=== PATIENT | female | born 1990 | race Two or more races ===

== ENCOUNTER 2025-01-09 17:17 | Emergency (ER) | payer OTHER ==
[~2025-01-09] VITALS: Ht 165.1 cm; Wt 74.8 kg
[2025-01-09] MEDS ORDERED: ANTICONCEPTIVAS (18:02)
[2025-01-09] MEDS ORDERED: KETOROLAC TROMETHAMINE 30 MG VIAL IM STA (21:01)
[2025-01-09] MEDS ORDERED: ORPHENADRINE CITRATE 30 MG/ML AMPUL IM STA (21:01)
[2025-01-09] MEDS ORDERED: KETOROLAC TROMETHAMINE 30 MG VIAL ONE (21:22)
[2025-01-09] MEDS ORDERED: ORPHENADRINE CITRATE 30 MG/ML AMPUL ONE (21:23)
== END 2025-01-09 21:31 | disposition home or self-care (01) ==
LOC: ER 17:19
DX: S39.82XA Other specified injuries of lower back, initial encounter (principal); W18.39XA Other fall on same level, initial encounter; Y93.89 Activity, other specified; Y92.59 Other trade areas as the place of occurrence of the external cause; Z91.013 Allergy to seafood; Z88.8 Allergy status to other drugs, medicaments and biological substances